=== PATIENT | female | born 1990 | race Caucasian/White ===

== ENCOUNTER 2021-07-13 00:03 | Emergency (ER) | payer BC, SELFPAY ==
[2021-07-13 00:16] VITALS: BP 115/84; PULSE 80; RESP 18; TEMP 36.4; O2SAT 100
[2021-07-13] MEDS: KETOROLAC 30 MG/ML VIAL (*BKC) IM (00:23)
[2021-07-13 00:47] LABS: Add Urine Microscopic? YES; Appearance Urine Cloudy (Clear); Bacteria Urine Trace /hpf; Bilirubin Urine Negative (Negative); Blood Urine 2+ (Negative); Color Urine Amber (Yellow); Glucose Urine UA Negative (Negative); Ketones Urine Trace mg/dL (Negative); Leukocyte Esterase Ur 1+ LEU/UL (Negative); Mucus Urine Moderate /lpf; Nitrate Urine Negative (Negative); Protein Urine Negative (Negative); RBC Urine 21-50 /hpf (0-2); Squamous Epithelial Cell Urine Moderate /hpf (Few); Urobilinogen Urine Negative mg/dL (<2.0); WBC Urine 51-75 /hpf
--- NOTE | 2021-07-13 01:01 | ED.FEMALEGU ---
HPI - Female Genitourinary General Chief complaint: Urogenital-Female Stated complaint: urinary problem Time Seen by Provider: 07/13/21 00:07 Source: patient Mode of arrival: ambulatory Limitations: no limitations History of Present Illness HPI Narrative: 31-year-old with a history of interstitial cystitis here with complaints of severe lower abdominal pain, dysuria for last 3 days. She states that she has been taking her medication with no relief. She denies any fever or chills. She states that she is unable to sleep for last 2 days because of the pain. MD elicited complaint: dysuria Pertinent past history: interstitial cystits Onset (ago): day(s) (3) Location of symptoms: suprapubic Female Urogenital Radiation: Non-Radiating Severity scale (1-10): 8 Quality of pain: stabbing Consistency: constant Vaginal discharge: none Vaginal bleeding: none Urinary symptoms: Dysuria, Urgency and Frequency Exacerbating factors: none Related Data Allergies Allergy/AdvReac Type Severity Reaction Status Date / Time No Known Allergies Allergy Unverified 06/08/17 17:26 Review of Systems Review of Systems: All systems reviewed & are unremarkable except as noted in HPI and below Constitutional: Constitutional: Reports no additional constitutional complaints Eyes: Eyes: Reports no additional eye complaints ENT: Reports system reviewed and no additional complaints, except as documented Cardiovascular: Cardiovascular: Reports no additional cardiovascular complaints Respiratory: Respiratory: Reports no additional respiratory complaints Gastrointestinal: Gastrointestinal: Reports no additional gastrointestinal complaints Genitourinary: Genitourinary: Reports as per HPI Musculoskeletal: Musculoskeletal: Reports no additional musculoskeletal complaints Integumentary/Breasts: Skin/Breast: Reports system reviewed and no additional complaints, except as docu Exam Narrative: GENERAL: Well-appearing, well-nourished, and in moderate amount of distress sec to pain HEAD: Normocephalic, atraumatic. EYES: PERRLA and EOMI.. NECK: Supple. CHEST: Clear to auscultation. No respiratory distress. HEART: Regular rate and rhythm. No murmur heard. Normal peripheral pulses. ABDOMEN: Soft, suprapubic tenderness, nondistended, normal active bowel sounds. EXTREMITIES: Normal range of motion. No edema. SKIN: Warm, dry, no rash. NEURO: No focal deficits. Alert and oriented x3. PSYCH: Normal mood and affect. Course Course Emergency Course: Pain is improved with Toradol informed her about her lab work. Advised to take antibiotic and pain medication as prescribed and follow-up with the urologist Vital Signs Vital signs: Vital Signs Temperature 36.4 C L 07/13/21 00:16 Pulse Rate 80 07/13/21 00:16 Respiratory Rate 18 07/13/21 00:16 Blood Pressure 115/84 07/13/21 00:16 Pulse Oximetry 100 07/13/21 00:16 Temperature 36.4 C L 07/13/21 00:16 Pulse Rate 80 07/13/21 00:16 Respiratory Rate 18 07/13/21 00:16 Blood Pressure 115/84 07/13/21 00:16 Pulse Oximetry 100 07/13/21 00:16 MDM - Female Genitourinary Lab Data Labs: Lab Results 07/13/21 Range/Units 00:22 Urine Color Mabel (Yellow) Urine Appearance Cloudy H (Clear) Urine pH 6.0 (5.0-9.0) Ur Specific [place] 1.020 (1.001-1.035) Urine Protein Negative (Negative) mg/dL Urine Glucose (UA) Negative (Negative) mg/dL Urine Ketones Trace (Negative) mg/dL Ur Blood (Man) 2+ H (Negative) Urine Nitrate Negative (Negative) Urine Bilirubin Negative (Negative) Urine Urobilinogen Negative (<2.0) mg/dL Leukocyte Esterase Rfl 1+ H (Negative) YAEL/UL Urine RBC 21-50 H (0-2) /hpf Urine WBC 51-75 H /hpf Ur Squamous Epith Cells Moderate H (Few) /hpf Urine Bacteria Trace /hpf Urine Mucus Moderate H /lpf Urine Characteristics Cloudy Discharge Plan Discharge
[2021-07-13 01:04] VITALS: BP 114/80; PULSE 90; RESP 18; O2SAT 97
== END 2021-07-13 01:11 | disposition home or self-care (01) ==
PROVIDERS: Emergency Provider Family Medicine
DX: N30.00 Acute cystitis without hematuria (principal)
CPT/HCPCS: 81001; 87077; 87086; 87088; 87186; 96372; 99283; J1885

== ENCOUNTER 2025-07-22 00:59 | Emergency (ER) | payer BC, SELFPAY ==
--- OUTSIDE RECORDS SUMMARY | 2025-07-21 09:04 | XMS_ITS | Encounter Summary ---
Author Organization [facility] Address [address] [place] [id number] Care Team Providers Care Asphalt Heater Operator Name Role Phone Arian Waters MD Primary Care Provider [phone] Encounter Details Date Type Department Care Team (Late st Contact Info) Description 07/21/2025 9:04 AM MARINE ARCHITECT Hospital Encounter [facility] [address] [address] Arian Waters MD [address] [place] [address] Arrived Social History Tobacco Use Types Packs/Day Years Used Date Smoking Tobacco: Former Cigarettes Smokeless Tobacco: Never Alcohol Use Standard Drinks/Week Comments Never 0 (1 standard drink = 0.6 oz pur e alcohol) AUDIT-C Answer Date Recorded Q1: How often do you have a drink containing alc ohol? Never 12/07/2020 Average Number of Drinks Not on file 021 Frequency of Binge Drinking Not on file 11/24 Comments No Sex and Gender Information Value Date Recorded Sex Assigned at Female 04/14/2025 11:02 AM CDT Legal Sex Female 11:19 PM CDT Gender Identity Not on file Sexual Orientation Not on file documented as of this encounter Plan of Treatment Not on file documented as of this encounter Procedures Procedure Name Priority Date/Time Associated Diagnosis Comments STREP A, DNA Routine 07/21/2025 9:15 AM MARINE ARCHITECT Acute upper respiratory infection, unspecified RESPIRATORY PCR PNL LIMITED Routine 07/21/2025 9:15 AM MARINE ARCHITECT Acute upper respiratory infection, unspecified documented in this encounter Results * STREP A, DNA (07/21/2025 9:15 AM MARINE ARCHITECT) SPECIMEN SOURCE THROAT 07/21/2025 9:11 AM MARINE ARCHITECT [facility] STREP A MOLECULAR NOT DETECTED NOT DETECTED 07/21/2025 10:01 AM MARINE ARCHITECT [facility] SWAB STRUCTURE OF ANTERIOR REGION OF NECK / Unknown 07/21/2025 9:15 AM MARINE ARCHITECT Arian Waters MD MICROBIOLOGY - GENERAL ORDERA BLES Final Result [facility] [address] [place] [address], * RESPIRATORY PCR PNL LIMITED (07/21/2025 9:15 AM MARINE ARCHITECT) SPEC DESCRIPTION NASOPHARYNGEAL SWAB 07/21/2025 9:11 AM MARINE ARCHITECT [facility] CORONAVIRUS SARS COV 2 PCR (RESP) NEGATIVE NEGATIVE 07/21/2025 10:14 AM MARINE ARCHITECT [facility] INFLUENZA A PCR (RESP) NEGATIVE NEGATIVE 07/21/2025 10:14 AM MARINE ARCHITECT [facility] INFLUENZA B PCR (RESP) NEGATIVE NEGATIVE 07/21/2025 10:14 AM MARINE ARCHITECT [facility] RSV PCR (RESP) NEGATIVE NEGATIVE 07/21/2025 10:14 AM MARINE ARCHITECT [facility] SWAB NASOPHARYNGEAL STRUCTURE / Unknown 07/21/2025 9:15 AM MARINE ARCHITECT Arian Waters MD MICROBIOLOGY - GENERAL ORDERA BLES Final Result [facility] [address] [place] [address], documented in this encounter Visit Diagnoses Diagnosis Acute upper respiratory infection, unspecified documented in this encounter Additional Health Concerns Infection Onset Date Last Indicated Resolved Time Respiratory Rule Out 07/21/2025 07/21/2025 025 10:15 AM MARINE ARCHITECT documented as of this encounter Care Teams Asphalt Heater Operator Relationship Specialty Start Date End Date Arian Waters MD [address] [place] [address] PCP - General FAMILY PRACTICE 04/22/24 documented as of this encounter
--- NOTE | ~2025-07-22 | XR_ITS ---
Examination: XR chest 2V Clinical History: cough Comparison: 04/10/2015 Technique: PA and Lateral Findings: Cardiomediastinal silhouette normal size and configuration. Left basilar streaky opacity. No acute bony abnormality. IMPRESSION: 1. Mild left basilar atelectasis and/or airspace disease. Reviewed, dictated and finalized at location R. UNITY SUPPORT WORKER
[2025-07-22 01:02] VITALS: BP 123/85; PULSE 77; RESP 20; TEMP 36.3; O2SAT 97
[2025-07-22 01:13] VITALS: O2SAT 99
--- NOTE | 2025-07-22 01:19 | ED_ITS ---
HPI - URI/Sore Throat General Chief Complaint: Shortness of Breath/Dyspnea Stated Complaint: sob, ears ringing, cough, can taste blood in mouth Time Seen by Provider: 07/22/25 01:10 History of Present Illness HPI Narrative: Patient is a 35-year-old female who presents to the ER with 2 day history of sore throat, cough, shortness of breath, chills/sweats. She reports she has had a persistent cough for approximately 1 month but it has worsened over the past 2 days. Patient reports it hurts her throat to swallow. She reports she had a fever this morning but has since resolved. Patient verses a history of seasonal allergies and takes Claritin when her symptoms flare up. She also has a history of blood transfusions with delivery of her children. Related Data Allergies Allergy/AdvReac Type Severity Reaction Status Date / Time No Known Allergies Allergy Unverified 06/08/17 17:26 Review of Systems Review of Systems: All systems reviewed & are unremarkable except as noted in HPI and below Exam Narrative: GENERAL: Well appearing, well-nourished, non-toxic, in no acute distress. HEAD: Normocephalic, atraumatic. No edema or redness noticed in throat. NECK: Supple. No adenopathy, no masses. RESPIRATORY: Airway patent, respirations nonlabored. Clear to auscultation bilaterally, no rales, rhonchi, wheezing. CARDIOVASCULAR: Regular rate and rhythm without murmurs, rubs, or gallops. Peripheral pulses 2+ and equal bilaterally. ABDOMINAL: Soft, nontender, nondistended, no hepatosplenomegaly. Normoactive BS. MUSCULOSKELETAL: Moves all extremities. Strength/ROM intact without gross deformities. SKIN: Warm, dry, normal color. No rashes. NEURO: A&O X3. Speech clear. Cranial nerves II-XII intact. No ataxic movements. PSYCHIATRIC: Appropriate mood and affect. Normal interaction. Course Vital Signs Vital signs: Vital Signs Temperature 36.3 C L 07/22/25 01:02 Pulse Rate 77 07/22/25 01:02 Respiratory Rate 20 07/22/25 01:02 Blood Pressure 123/85 07/22/25 01:02 Pulse Oximetry 97 07/22/25 01:02 Oxygen Delivery Room Air 07/22/25 01:02 Temperature 36.3 C L 07/22/25 01:02 Pulse Rate 73 07/22/25 01:30 Respiratory Rate 20 07/22/25 01:30 Blood Pressure 123/85 07/22/25 01:02 Pulse Oximetry 99 07/22/25 01:13 Oxygen Delivery Room Air 07/22/25 01:13 MDM - URI/Sore Throat MDM Narrative Medical decision making narrative: Patient is a 35-year-old female who presents to the ER with 2 day history of sore throat, cough, shortness of breath, chills/sweats. She reports she has had a persistent cough for approximately 1 month but it has worsened over the past 2 days. Patient reports it hurts her throat to swallow. She reports she had a fever this morning but has since resolved. Patient verses a history of seasonal allergies and takes Claritin when her symptoms flare up. She also has a history of blood transfusions with delivery of her children. Labs Ordered: Strep swab, COVID/flu/RSV Imaging Ordered: Chest x-ray Medications Ordered: DuoNeb, Toradol 60 mg IM, prednisone 40 mg p.o. Results: Pt's chest x-ray indicates no acute abnormalities. Diagnosis: upper respiratory infection Patient Education/Shared MDM: Results of lab work and imaging shared with patient. She endorses improvement of symptoms following medication administration. Patient strongly advised to maintain hydration status upon discharge and follow-up with her PCP in the next 2-3 days to ensure she is healing. She continues to have your double cough while in the ER so patient will be given a dose of Phenergan with codeine. She will be discharged home with a prescription for Medrol Dosepak, Tessalon Pearles and albuterol inhaler. Strict return precautions provided. Patient verbalized understanding and is in agreement with plan. Vital signs stable at time of discharge. All questions answered. Differential Diagnosis Differential diagnosis: Likely upper respiratory infection, viral infection, bronchitis and other (Strep throat, COVID) Lab Data Attestation: I reviewed the patient's lab results. Labs: Lab Results 07/22/25 Range/Units 01:26 Influenza A (RT-PCR) Negative (Negative) Influenza B (RT-PCR) Negative (Negative) RSV (RT-PCR) Negative (Negative) SARS-CoV-2 RNA (RT-PCR) Negative (Negative) Group A Strep (PCR) Not detected (Negative) Imaging Data Attestation: I personally reviewed and interpreted this imaging study as follows: My impression: No acute abnormalities on chest x-ray. Discharge Plan Discharge Clinical Impression: Bronchitis, Upper respiratory infection, Cough Patient Disposition: Home Condition: Stable Instructions: Antibiotic Form, Upper Respiratory Infection (ED), Acute Bronchitis (ED) Additional Instructions: Please return to the ER with any worsening symptoms. Follow-up with primary care provider in the next 2-3 days to ensure your healing. Take all medications as prescribed, including regularly scheduled medications. You may take Tylenol and/or ibuprofen for pain control. Please remember to drink lots of water. Patient Language: Lao Prescriptions: New benzonatate 200 mg capsule 200 mg PO TID PRN (Reason: cough) Qty: 30 0RF albuterol sulfate [Ventolin HFA] 90 mcg/actuation HFA aerosol inhaler 2 puff inhalation QID PRN (Reason: shortness of breath or wheezing) Qty: 8.5 0RF methylprednisolone [Medrol (Keyur)] 4 mg tablets,dose pack See Rx Instructions .ROUTE .COMPLEX Qty: 21 0RF Rx Instructions: for 6 days No Action cefadroxil 500 mg capsule 500 mg PO BID Qty: 14 0RF hydrocodone-acetaminophen 5-325 mg tablet 1 tablet PO Q8H Qty: 10 0RF Follow-up/Referrals: PHYSICIAN,TOP LIFT AND AUTOMATIC WINDOW REPAIRER [Non-Staff, Internal Medicine] Time of Disposition: 02:52
--- OUTSIDE RECORDS SUMMARY | 2025-07-22 01:25 | XMS_ITS | Clinical Summary ---
Author Organization [facility] Address [address] [place] [address] Phone Care Team Providers Care Glass Checker Name Role Phone Unavailable Primary Care Provider Unavailabl e Allergies No known active allergies Medications Adapalene (DIFFERIN) 0.1 % GelIndications:Ac ne vulgaris Apply to affected area daily To face, upper back and chest. 45 Gram 9 Active doxycycline hyclate (VIBRAMYCIN) 100 mg tablet Take 1 Tablet (100 mg) by mouth daily. 60 Tablet 9 Active phenazopyridine HCl (AZO ORAL) Take by mouth. prn Active calcium carbonate (TUMS ORAL) Take by mouth. Act chari traMADol (ULTRAM) 50 mg tabletIndications :Bladder pain Take 1 Tablet (50 mg) by mouth every 6 hours as needed for Pain. 25 Tablet 9 Active phenazopyridine 200 mg tablet Take 1 Tablet (200 mg) by mouth 3 times daily as needed for Pain (for burning with urination). 30 Tablet 9 Active phenazopyridine 200 mg tablet Take 1 Tablet (200 mg) by mouth 3 times daily as needed for Pain. 30 Tablet 9 Active pentosan polysulfate sodium (Elmiron) 100 mg Capsule Take 1 Capsule (100 mg) by mouth 3 times daily before meals. 90 Capsule 2 0 Active spironolactone (ALDACTONE) 25 mg tablet Take 1 Tablet (25 mg) by mouth 2 times daily. 60 Tablet 3 0 Active Urea 40 % Lotion APPLY TO AFFECTED AREAS OF THIGHS TWICE PER DAY 226.8 mL 3 0 Active FLUoxetine (PROzac) 40 mg capsule Take 1 Capsule (40 mg) by mouth daily. 90 Capsule 1 0 Active FLUoxetine (PROzac) 20 mg capsule Take 1 Capsule (20 mg) by mouth daily. Take with Fluoxetine 40 mg capsule for a total dose of 60 mg daily. 90 Capsule 1 0 Active cefdinir (OMNICEF) 300 mg capsule Take 1 Capsule (300 mg) by mouth every 12 hours. 14 Capsule 0 Active hydrOXYzine pamoate (VISTARIL) 25 mg capsule Take 1 Capsule (25 mg) by mouth 3 times daily as needed for Itching. 90 Capsule 1 1 Active solifenacin (VESIcare) 10 mg Tablet Take 1 Tablet (10 mg) by mouth daily. 30 Tablet 2 1 Active amitriptyline (ELAVIL) 25 mg tablet Take 1 Tablet (25 mg) by mouth daily at bedtime. 30 Tablet 2 4 Active ketorolac tromethamine (TORADOL) 10 mg tablet Take 1 Tablet (10 mg) by mouth every 6 hours as needed for Pain. 15 Tablet 4 Active Active Problems Problem Noted Date Diagnosed Date Acne vulgaris 02/20/2019 Recurrent major depressive disorder, in partial remission 02/20/2019 Dwight of foot 02/20/2019 Primary insomnia 02/20/2019 Anxiety state 02/20/2019 Interstitial cystitis 10/28/2018 HSV (herpes simplex virus) infection 06/30/2011 Overview (12/28/2019): First outbreak 05/2011 Immunizations Immunization Administration Dates Next Due (INFANRIX)(6 WKS-6 YRS) DIPT HERIA, TETANUS TOXOIDS, AND ACCELLULAR PERTUSSIS VACCINE (DTAP), 0.5 ML IM 07/23/2011 INFLUENZA VACCINE QUADRIVALENT 6 MOS UP IM 06/04 INFLUENZA VACCINE QUADRIVALENT 6 MOS UP PF IM Influenza Seasonal Unspecified Formulation IM Family History Medical History Relation Name Comments No Known Problems Brother Healthy Daughter Heart Disease Father No Known Problems Maternal Grandfather Cancer Maternal Grandmother Skin Cancer Mother Unknown Paternal Grandfather Cancer Paternal Grandmother No Known Problems Sister 1 No Known Problems Sister 2 Healthy Son Relation Name Status Comments Brother Alive Daughter Alive Father Alive Maternal Grandfather Alive Maternal Grandmother Mother Alive Paternal Grandfather Other Paternal Grandmother Sister 1 Alive Sister 2 Alive Son Alive Social History Tobacco Use Types Packs/Day Years Used Date Smoking Tobacco: Former Cigarettes Smokeless Tobacco: Never Tobacco Cessation:Counseling Given: Yes Alcohol Use Standard Drinks/Week Comments No 0 (1 standard drink = 0.6 oz pur e alcohol) Comments No Sex and Gender Information Value Date Recorded Sex Assigned at Not on file Legal Sex Female 6:04 AM LAW SECRETARY Gender Identity Not on file Sexual Orientation Not on file Last Filed Vital Signs Vital Sign Reading Time Taken Comments Blood Pressure 111/75 07/12/2021 8:42 PM LAW SECRETARY Pulse 72 07/12/2021 8:42 PM LAW SECRETARY Temperature 36.7 C (98 F) 07/12/2021 5:15 PM LAW SECRETARY Respiratory Rate 12 07/12/2021 8:42 PM LAW SECRETARY Oxygen Saturation 100% 07/12/2021 8:42 PM LAW SECRETARY Inhaled Oxygen Concentration - - Weight 72.6 kg (160 lb) 07/12/2021 5:15 PM LAW SECRETARY Height 162.6 cm (5' 4) 07/12/2021 5:15 PM LAW SECRETARY Body Mass Index 27.46 07/12/2021 5:15 PM LAW SECRETARY Plan of Treatment Health Maintenance Due Date Last Done Comments HEPATITIS B VACCINES (1 of 3 - 19+ 3-dose series) 2007 HPV/Cotest (21-29) 2009 HPV VACCINES (1 - 3-dose SCD M series) 2015 HPV/Cotest (30-65) 2018 CERVICAL CANCER SCREENING 11/24/2021 PAP SMEAR 11/24/2021 11/24/2018 (Prev iously completed) INFLUENZA VACCINE (#1) 2025 9, 05/23/2018, 07/01/2011 DTAP/TDAP/TD VACCINES (3 - T d or Tdap) 12/07/2030 12/07/2020, 07/23/2011 Medical Devices Implanted Type Area Quarry Supervisor Device Identifier Shelf Expiration Date Model / Serial / Lot Breast Implants Description:2008 Insurance * Guarantor: [employer] D (C) Account Type Relation to Patient Date of Phone Billing Address Corporate Employer ATTN: BHAVIK LARSEN [address] Advance Directives For more information, please contact: [phone] * Full Code (Latest Code Status on File) Date Activated Date Inactivated Comments 06/16/2019 8:36 AM 06/16/2019 4:48 PM
--- OUTSIDE RECORDS SUMMARY | 2025-07-22 01:25 | XMS_ITS | Clinical Summary ---
Author Organization [facility] Address [facility] [place] [address] Care Team Providers Care Computer Applications Developer Name Role Phone Arian Waters MD Primary Care Provider [phone] Allergies No known active allergies Medications oseltamivir 75 MG capsule Take 1 capsule (75 mg total) by mouth 2 (two) times daily. 0 11/10/2018 Active LAMISIL AT 1 % cream APPLY TO AFFECTED AREA 2 TIMES DAILY TO SCALY AREAS ON THE BOTTOM OF BOTH FEET FOR UP TO 4 WEEKS. 1 02/20/2019 Active fluoxetine 20 MG tablet TAKE 1 TABLET DAILY FOR 1 WEEK THEN 2 TABS DAILY FOR 1 WEEK THEN 3 TABS DAILY. 0 02/20/2019 Active FLUoxetine HCl 60 MG Tab Take 1 tablet by mouth daily. 0 03/13/2019 Active amphetamine-dex troamphetamine (ADDERALL) 10 MG tablet 02/02/2025 Active spironolactone (ALDACTONE) 100 MG tablet Take 2 tablets (200 mg total) by mouth daily. 12/10/2024 Active Encounters Date Type Department Care Team Description 07/21/2025 9:04 AM CLEARANCE CUTTER Hospital Encounter [facility] [address] [address] Arian Waters MD Arrived 07/21/2025 Orders Only [facility] [place] [address] [address] Airan Waters MD 07/21/2025 Travel 05/01/2025 4:06 PM CDT - 05/01/2025 5:00 PM CDT Emergency [facility] [place] [address] [address] Dental Problem Discharge Disposition: Home or Self Care (Routine Discharge) 05/01/2025 Travel from Last 3 Months Immunizations Immunization Administration Dates Next Due Tdap (Adacel) 12/07/2020 Social History Tobacco Use Types Packs/Day Years Used Date Smoking Tobacco: Former Cigarettes Smokeless Tobacco: Never Tobacco Cessation:Counseling Given: Not Answered Alcohol Use Standard Drinks/Week Comments Never 0 [...] Sign Reading Time Taken Comments Blood Pressure 115/85 05/01/2025 5:00 PM CDT Pulse 78 05/01/2025 4:10 PM CDT Temperature 36.7 C (98 F) 05/01/2025 4:10 PM CDT Respiratory Rate 16 05/01/2025 5:00 PM CDT Oxygen Saturation 100% 05/01/2025 5:00 PM CDT Inhaled Oxygen Concentration - - Weight 74.9 kg (165 lb 2 oz) 05/01/2025 4:10 PM CDT Height 165.1 cm (5' 5) 05/01/2025 4:10 PM CDT Body Mass Index 27.48 05/01/2025 4:10 PM CDT Plan of Treatment Health Maintenance Due Date Last Done Comments Annual Physical 1991 Hepatitis C 2006 Hepatitis B Vaccines (1 of 3 - 19+ 3-dose series) 2007 Cervical Cancer Screening Pa p Smear (Age 30 to 64) Every 3 Years 07/21/2014 07/21/2011 HPV Vaccines (1 - 3-dose SCD M series) 2015 Cervical Cancer Screening Pa p with HPV Testing (Age 30 to 64) Every 5 Years 2018 Cervical Cancer Screening wi th HPV 2018 COVID-19 Vaccine ( - 2024-2 6 season) 2025 Influenza Adult (#1) 2025 06/04/2019, 05/23/2018, 07/01/2011 DTaP, Tdap and Td Vaccines ( 3 - Td or Tdap) 12/07/2030 12/07/2020, 07/23/2011 Hepatitis A Vaccines Aged Out No long er eligible based on patient's age to complete this topic Meningococcal B Vaccine Aged Out No l onger eligible based on patient's age to complete this topic Meningococcal Vaccine Aged Out No aracelis cheryl eligible based on patient's age to complete this topic Pneumococcal Vaccine: Pediatrics (0 to 5 Years) and At-Risk Patients (6 to 49 Years) Aged Out No longer eligible b ased on patient's age to complete this topic RSV Immunizations Under 20 Months Aged Out No longer eligible b ased on patient's age to complete this topic Procedures Procedure Name Priority Date/Time Associated Diagnosis Comments STREP A, DNA Routine 07/21/2025 9:15 AM CLEARANCE CUTTER Acute upper respiratory infection, unspecified RESPIRATORY PCR PNL LIMITED Routine 07/21/2025 9:15 AM CLEARANCE CUTTER Acute upper respiratory infection, unspecified from Last 3 Months Results * STREP A, DNA (07/21/2025 9:15 AM CLEARANCE CUTTER) SPECIMEN SOURCE THROAT 07/21/2025 9:11 AM CLEARANCE CUTTER [facility] STREP A MOLECULAR NOT DETECTED NOT DETECTED 07/21/2025 10:01 AM CLEARANCE CUTTER [facility] SWAB STRUCTURE OF ANTERIOR REGION OF NECK / Unknown 07/21/2025 9:15 AM CLEARANCE CUTTER us Arian Waters MD MICROBIOLOGY - GENERAL ORDERA BLES Final Result [facility] [address] [place] [address], * RESPIRATORY PCR PNL LIMITED (07/21/2025 9:15 AM CLEARANCE CUTTER) SPEC DESCRIPTION NASOPHARYNGEAL SWAB 07/21/2025 9:11 AM CLEARANCE CUTTER [facility] CORONAVIRUS SARS COV 2 PCR (RESP) NEGATIVE NEGATIVE 07/21/2025 10:14 AM CLEARANCE CUTTER [facility] INFLUENZA A PCR (RESP) NEGATIVE NEGATIVE 07/21/2025 10:14 AM CLEARANCE CUTTER [facility] INFLUENZA B PCR (RESP) NEGATIVE NEGATIVE 07/21/2025 10:14 AM CLEARANCE CUTTER [facility] RSV PCR (RESP) NEGATIVE NEGATIVE 07/21/2025 10:14 AM CLEARANCE CUTTER [facility] SWAB NASOPHARYNGEAL STRUCTURE / Unknown 07/21/2025 9:15 AM CLEARANCE CUTTER us Arian Waters MD MICROBIOLOGY - GENERAL ORDERA BLES Final Result [facility] [address] [place] [address], from Last 3 Months Insurance [facility] MEDICAID C/O PROVIDER SERVICES TAMMY LOWRY [id number] Care Teams Computer Applications Developer Relationship Specialty Start Date End Date Arian Waters MD [address] [place] [address] PCP - General FAMILY PRACTICE 04/22/24
--- OUTSIDE RECORDS SUMMARY | 2025-07-22 01:25 | XMS_ITS | Clinical Summary ---
Author Organization [facility] [employer] Address [address] [place] [address] Care Team Providers Care Clay Molder Name Role Phone Unavailable Primary Care Provider Unavailabl e Source Comments [facility] [employer],non-owned Affiliates and Associated Physician Practices is amultiple site organization consisting of ambulatory clinics and hospital sitesin [place], [place], [place]. This disclosure is being madepursuant to the Care Everywhere program and may not contain all information available regarding this patient. Last updated 18.[facility] [employer] Allergies No known active allergies Medications * Be aware that medications may not be up to date on this document. Alwaysverify current medications with the patient. ferrous gluconate 324 MG tablet Take 324 mg by mouth 2 times daily with breakfast and dinner. Active Vit-Fe Fumarate-FA ( VITAMIN) 28-0.8 MG tablet Take 1 Tab by mouth once daily. Active NIFEdipine (PROCARDIA) 20 MG capsule Take 1 Cap by mouth every 4 hours. 90 0 1 Active docusate sodium (COLACE) 100 MG capsule Take 1 Cap by mouth 2 times daily as needed for Constipation. 60 1 1 Active Cholecalciferol (VITAMIN D) 1000 UNIT capsule Take 1,000 Units by mouth once daily. Active oxycodone-aceta minophen (PERCOCET) 5-325 MG tablet Take 1-2 Tabs by mouth every 4 hours as needed. 28 Tab 0 1 Active ibuprofen (MOTRIN) 600 MG tablet Take 1 Tab by mouth every 4 hours as needed for Pain. 30 Tab 0 1 Active docusate sodium (COLACE) 100 MG capsule Take 1 Cap by mouth once daily. 60 3 1 Active Active Problems Problem Noted Date Diagnosed Date Supervision of high-risk 07/03/2011 Overview (07/03/2011): Dating by LMP = 1st trimester US Prenatals: A+/I/-/-, HIV NR Vaginal bleeding 06/30/2011 Placental abruption 06/30/2011 Overview (06/30/2011): 4x5.8x1.8 hypoechoic area, c/w retroplacental hemorrhage Threatened labor, antepartum 06/30/2011 Malpresentation of fetus 06/30/2011 Overview (06/30/2011): breech presentation HSV (herpes simplex virus) infection 06/30/2011 Overview (06/30/2011): First outbreak 05/2011 Immunizations Immunization Administration Dates Next Due INFLUENZA VACCINE 07/01/2011 Family History Medical History Relation Name Comments Cancer Maternal Grandfather Cancer Maternal Grandmother Relation Name Status Comments Maternal Grandfather Maternal Grandmother Social History Tobacco Use Types Packs/Day Years Used Date Smoking Tobacco: Never Smokeless Tobacco: Never Tobacco Cessation:Counseling Given: No Alcohol Use Standard Drinks/Week Comments No 0 (1 standard drink = 0.6 oz pur e alcohol) Comments Unknown Sex and Gender Information Value Date Recorded Sex Assigned at Not on file Legal 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 Gender Identity Not on file Sexual Orientation Not on file Last Filed Vital Signs Vital Sign Reading Time Taken Comments Blood Pressure 116/71 03/22/2017 3:13 PM CDT Pulse 64 03/22/2017 3:13 PM CDT Temperature 36.2 C (97.1 F) 03/22/2017 3:13 PM CDT Respiratory Rate 16 07/27/2011 9:50 AM BAKING POWDER MIXER Oxygen Saturation 99% 07/23/2011 9:59 AM BAKING POWDER MIXER Inhaled Oxygen Concentration - - Weight 67.6 kg (149 lb) 03/22/2017 3:13 PM CDT Height 162.6 cm (5' 4) 03/22/2017 3:13 PM CDT Body Mass Index 25.58 03/22/2017 3:13 PM CDT Plan of Treatment Health Maintenance Due Date Last Done Comments HIV SCREENING 2003 HEPATITIS C SCREENING 03/30/2006 DTAP/TDAP/TD VACCINES (1 - Tdap) 2007 HEPATITIS B VACCINE (1 of 3 - 19+ 3-dose series) 2007 PAP SMEAR 2009 HPV VACCINE (1 - 3-dose SCDM series) 2015 Cervical Cancer Screening 2018 PAP with HPV 2018 DEPRESSION SCREENING 08/26/2024 COVID-19 VACCINE (1 - 2024-2 6 season) 2025 INFLUENZA VACCINE (#1) 2025 07/01/2011 ZOSTER VACCINE (1 of 2) 2038 HIB VACCINE Aged Out No longer eligi ble based on patient's age to complete this topic MENINGOCOCCAL (Group B) VACC INE SHARED DECISION-MAKING Aged Out No longer eligibl e based on patient's age to complete this topic MENINGOCOCCAL GROUPS A/C/Y/W VACCINE Aged Out No longer eligible b ased on patient's age to complete this topic PNEUMOCOCCAL VACCINE Aged Out No long er eligible based on patient's age to complete this topic Advance Directives * FULL RESUSCITATION (Latest Code Status on File) Date Activated Date Inactivated Comments 07/21/2011 11:36 AM 07/28/2011 7:46 AM * FULL RESUSCITATION Date Activated Date Inactivated Comments 06/30/2011 1:42 PM 07/10/2011 4:34 AM
--- OUTSIDE RECORDS SUMMARY | 2025-07-22 01:25 | XMS_ITS | Encounter Summary ---
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
--- OUTSIDE RECORDS SUMMARY | 2025-07-22 01:25 | XMS_ITS | Encounter Summary ---
Author Organization [facility] Address [address] [place] [address] Care Team Providers Care Smoke Jumper Supervisor Name Role Phone Arian Waters MD Primary Care Provider [phone] Encounter Details Date Type Department Care Team (Late st Contact Info) Description 07/21/2025 Orders Only [facility] [address] [address] Arian Waters MD [address] [place] [address] Social History Tobacco Use Types Packs/Day Years [...] on file documented as of this encounter Results * STREP A, DNA (07/21/2025 9:15 AM [facility] [[email or web address] SPECIMEN SOURCE THROAT 07/21/2025 9:11 AM [facility] STREP A MOLECULAR NOT DETECTED NOT DETECTED 07/21/2025 10:01 AM [facility] SWAB STRUCTURE OF ANTERIOR REGION OF NECK / Unknown 07/21/2025 9:15 AM DIRECTOR RECREATION Arian Waters MD MICROBIOLOGY - GENERAL JERMANA FADIA Final Result Performing Organization Address City/[facility]/ZIP Co de Phone Number [facility] [place] [address], * RESPIRATORY PCR PNL LIMITED (07/21/2025 9:15 AM DIRECTOR RECREATION) SPEC DESCRIPTION NASOPHARYNGEAL SWAB 07/21/2025 9:11 AM DIRECTOR RECREATION [facility] CORONAVIRUS SARS COV 2 PCR (RESP) NEGATIVE NEGATIVE 07/21/2025 10:14 AM DIRECTOR RECREATION [facility] INFLUENZA A PCR (RESP) NEGATIVE NEGATIVE 07/21/2025 10:14 AM DIRECTOR RECREATION [facility] INFLUENZA B PCR (RESP) NEGATIVE NEGATIVE 07/21/2025 10:14 AM DIRECTOR RECREATION [facility] RSV PCR (RESP) NEGATIVE NEGATIVE 07/21/2025 10:14 AM DIRECTOR RECREATION [facility] SWAB NASOPHARYNGEAL STRUCTURE / Unknown 07/21/2025 9:15 AM DIRECTOR RECREATION Arian Waters MD MICROBIOLOGY - GENERAL JERMANA BLECarlo Final Result Performing Organization Address [facility] de Phone Number [facility] [address] [place] [address], [place] [phone] documented in this encounter Visit Diagnoses Diagnosis Acute upper respiratory infection, unspecified- Primary documented in this encounter Additional Health Concerns Infection Onset Date Last Indicated Resolved Time Respiratory Rule Out 07/21/2025 07/21/2025 025 10:15 AM DIRECTOR RECREATION documented as of this encounter Care Teams Smoke Jumper Supervisor Relationship Specialty Start Date End Date Arian Waters MD [address] [place] [address] PCP - General FAMILY PRACTICE 04/22/24 documented as of this encounter
--- OUTSIDE RECORDS SUMMARY | 2025-07-22 01:25 | XMS_ITS | Encounter Summary ---
Author Organization [employer] Address [address] [place] [address] Care Team Providers Care Process Control Supervisor Name Role Phone Unavailable Primary Care Provider Unavailabl e Encounter Details Date Type Department Care Team (Late st Contact Info) Description 11/30/2019 Digital Self COVID-1 9 Screening [facility] ABSTRACTION Provider, Abstract NO ADDRESS ON FILE Social History Tobacco Use Types Packs/Day Years Used Date Smoking Tobacco: Former Cigarettes Smokeless Tobacco: Never Alcohol Use Standard Drinks/Week Comments No 0 (1 standard drink = 0.6 oz pur e alcohol) Comments No Sex and Gender Information Value Date Recorded Sex Assigned at Not on file 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
[2025-07-22 01:30] VITALS: PULSE 73; RESP 20
[2025-07-22] MEDS: IPRATROPIUM 0.5 MG/ALBUTEROL SULFATE 2.5 MG (BASE) AMPUL.NEB 3 ML INHALATION (01:30)
[2025-07-22] MEDS: KETOROLAC (*BKC) 60 MG/2 ML VIAL IM (01:46)
[2025-07-22 02:04] LABS: Strep Group A RT-PCR NOT DETECTED (Negative)
[2025-07-22 02:15] LABS: Influenza A QL RT-PCR Negative (Negative); Influenza B QL RT-PCR Negative (Negative); RSV RNA, RT-PCR Negative (Negative); SARS-CoV-2 RNA PCR Negative (Negative)
[2025-07-22] MEDS: PROMETHAZINE/CODEINE (*CRX) 5 ML SYRUP PO (02:29)
[2025-07-22 02:46] VITALS: BP 126/82; PULSE 83; RESP 18; O2SAT 99
[2025-07-22 03:16] VITALS: BP 126/82; PULSE 88; RESP 18; O2SAT 99
== END 2025-07-22 03:19 | disposition home or self-care (01) ==
PROVIDERS: Student in an Organized Health Care Education/Training Program; Emergency Provider Registered Nurse; PCP Family Medicine
DX: J40 Bronchitis, not specified as acute or chronic (principal); J06.9 Acute upper respiratory infection, unspecified; Z20.822 Contact with and (suspected) exposure to COVID-19
CPT/HCPCS: 71046; 87637; 87651; 94640; 96372; 99283; A9270; J1885; J7512